=== PATIENT | female | born 1990 | race Caucasian/White ===

== ENCOUNTER → 2019-10-14 12:40 | Outpatient (CLI) | payer OTHER, SELFPAY ==
[2019-10-14 11:48] VITALS: BMI 33.3
[2019-10-14 13:13] LABS: Absolute Lymphocyte Count 2.52 X10^3/uL (0.83-4.51); Absolute Neutrophil Count 5.5 X10^3/uL (2.0-7.7); Basophil# 0.03 X10^3/uL; Basophil% 0.3 % (0-1); Eosinophils% 1.2 % (0-5); Hematocrit 37.8 % (37-47); Hemoglobin 13.8 g/dL (12.0-15.0); Lymphocyte # 2.52 X10^3/ul (4.0); Lymphocyte % 29.3 % (19-41); Mean Corp Hgb Conc 36.5 g/dL (32-36); Mean Corpuscular Hgb 31.8 pg (27.0-32.0); Mean Corpuscular Volume 87.1 fL (81-99); Mean Platelet Vol. 11.8 fl (6.2-12.0); Monocyte# 0.48 X10^3/uL; Monocyte% 5.6 % (0-10); NRBC Flagged by Analyzer 0 % (0-5); Neutrophil # 5.45 X10^3/uL (2.7-7.7); Neutrophil % 63.3 % (47-70); Platelet Count 196 K/mm3 (150-450); RBC Distribution Width CV 11.5 % (11.6-14.6); RBC Distribution Width SD 36.8 fl (35.1-43.9); Red Blood Count 4.34 M/mm3 (4.2-5.4); White Blood Count 8.6 K/mm3 (4.4-11.0)
[2019-10-14 13:48] LABS: ALB/GLOB Ratio 1.1 RATIO (0.9-2.4); AST(SGOT) 13 U/L (15-37); Alanine Aminotransfer ALT/SGPT 23 U/L (13-56); Albumin, Serum 3.6 g/dL (3.2-5.0); Alkaline Phosphatase 90 U/L (45-117); Anion Gap 11 (5-15); BUN 9 mg/dL (7-18); BUN/Creat Ratio 11.7 RATIO (10-20); Calcium,Total 8.5 mg/dL (8.5-10.1); Chloride 105 mmol/L (98-107); Creatinine, Serum 0.77 mg/dL (0.55-1.02); EST Glomerular Filtration Rate 93 mL/min (>60); Est Glom Filt Rate - Afr Amer 112 mL/min (>60); Globulin 3.4 g/dL (2.2-4.2); Glucose 259 mg/dL (74-106); Potassium 3.6 mmol/L (3.5-5.1); Sodium Level 136 mmol/L (136-145); Thyroid Stim Hormone (TSH) 4.36 uIU/mL (0.358-3.74)
[2019-10-14 14:30] LABS: HIV - WCH Non-Reactive (Nonreactive); Hepatitis B Surface Antigen Non-Reactive (Nonreactive); Rubella IgG > 500.0 IU/mL
[2019-10-14 14:46] LABS: Protein, Urine (Random) < 6.0 mg/dL (<11.9)
[2019-10-14 14:49] LABS: Microalbumin:Creatinine Ratio 7.8 mg/g CRE (<30 mg/g CRE)
[2019-10-14 16:32] LABS: Chlamydia Trachomatis by PCR Negative (Negative); Neisserai gonorrhoeae by PCR Negative (Negative); Probe Check PASS; Sample Adequacy Control PASS; Specimen Processing Control PASS
[2019-10-15 01:49] LABS: Rapid Plasmin Reagin (RPR) NONREACTIVE (NONREACTIVE)
[2019-10-19 20:15] LABS: HPV APTIMA, High Risk Positive (Negative)
== END ==
PROVIDERS: Family Medicine; Referring Provider Obstetrics & Gynecology; Visit Provider Obstetrics & Gynecology
DX: Z12.4 Encounter for screening for malignant neoplasm of cervix (principal); E11.65 Type 2 diabetes mellitus with hyperglycemia; E03.9 Hypothyroidism, unspecified; E07.9 Disorder of thyroid, unspecified; O99.210 Obesity complicating pregnancy, unspecified trimester; O24.919 Unspecified diabetes mellitus in pregnancy, unspecified trimester; Z83.2 Family history of diseases of the blood and blood-forming organs and certain disorders involving the immune mechanism
CPT/HCPCS: 36415; 80053; 82043; 82570; 84156; 84443; 85025; 85245; 86592; 86703; 86762; 86850; 86900; 86901; 87077; 87086; 87088; 87186; 87340; 87491; 87591; 87624; 88175; G0145

== ENCOUNTER 2019-10-30 01:55 | Emergency (ER) | payer OTHER, SELFPAY ==
[2019-10-14 11:48] VITALS: BMI 33.3
[2019-10-30 01:56] VITALS: BP 137/99; PULSE 80; RESP 16; TEMP 36.8; O2SAT 98; BMI 31.1
--- NOTE | 2019-10-30 02:38 | ED.VIS.GEN ---
History of Present Illness Chief Complaint: Vag Bleeding Informant: Patient Narrative: Patient is a G1, P0 at approximately 8 weeks by ultrasound. Ultrasound showed intrauterine with positive heart tones recently. She noticed yesterday she was having a tiny amount of spotting only when she wipes after urination. This continued today. She has no overt bleeding. Blood type is a positive. She is seeing Dr. Flip Berumen. She denies any abdominal pain. No fevers or chills. Denies any other urinary symptoms. Current severity mild. Past Medical History - Allergies and Home Meds Allergies/Adverse Reactions: Allergies No Known Allergies Allergy (Verified 10/14/19 11:36) Primary Care Physician: Kelby Sanabria MD [Primary Care Provider] - Prior records reviewed: Yes Past Medical History: None Surgical History: noncontributory Lives: With Family Smoking Status: Never smoker Alcohol: None Drugs: None Review of Systems General: Denies: Chills, Fever, Sweats Eyes: Denies: Visual changes - bilaterally, Diplopia ENT: Denies: Rhinorrhea, Sore throat Cardiovascular: Denies: Chest pain, Palpitations Respiratory: Denies: Dyspnea, Cough, Dyspnea on exertion Gastrointestinal: Denies: Abdominal pain, Nausea, Vomiting, Diarrhea, Melena, Hematochezia Genitourinary: Reports: - - Positive vaginal blood spot when she wipes. Denies: Dysuria, Hematuria, Frequency Musculoskeletal: Denies: Back pain, Extremity Pain Skin: Denies: Rash, Wounds Neurological: Denies: Headache, Weakness, Numbness Physical Exam Vital Signs/Narrative: Vital Signs Temp Pulse Resp BP Pulse Ox 10/30/19 01:56 98.2 F 80 16 137/99 H 98 General: Well nourished, Well developed, No Acute Distress Head: Normocephalic, Atraumatic Eyes: Perrl, EOMI ENT: Moist mucous membranes, No rhinorrhea Neck: Supple, Nontender Cardiovascular: Regular rate, Regular rhythm, No murmurs Respiratory: No distress, CTA bilaterally, Chest nontender Abdomen: Soft, Nontender, Nondistended, Normal bowel sounds Back: Nontender, Normal Inspection Extremities: Nontender, No edema Skin: Normal color, No rash Neurological: Alert, Oriented x3, Cranial nerves II-XII grossly intact, Normal Strength, Normal Sensation Psychological: Normal affect, Normal Mood Diagnostic/Tx/Re-eval - Medical Decision Making Urinalysis obtained. Patient's blood type is O+. I do not feel she needs a CBC as this is just spotting. Pelvic exam done.. Pelvic exam and she has membranes and mild bleeding coming out. Quantitative sent. At this time I discussed doing a ultrasound of the patient. However I feel she is having a miscarriage. Patient agrees she does not need ultrasound. She is to follow-up with her FLIGHT ATTENDANT/INFLIGHT SUPERVISOR. She will be discharged home. She does not need RhoGam as she is Rh+. She will follow-up as an outpatient. Given Tylenol for cramping ED Disposition - Plan for ED Patient: Disposition: Home or Assisted Living Diagnosis: Incomplete miscarriage Instructions: MISCARRIAGE (Incomplete) Additional Instructions: Please follow-up with your FLIGHT ATTENDANT/INFLIGHT SUPERVISOR in the next few days
[2019-10-30 03:09] LABS: Color, Urine Yellow (Yellow); Glucose, Dipstick Normal (Normal); Ketone-Dipstick 15 mg/dl (Negative); Leukocyte Esterase-Dipstick 100 /ul (Negative); Nitrite-Dipstick Negative (Negative); Occult Blood-Urine 250 /ul (Negative); Protein-Dipstick 15 mg/dl (Negative); Urine Bilirubin Dipstick Negative (Negative); Urine Clarity Sl. Cloudy (Clear); Urine Urobilinogen Normal (Normal)
[2019-10-30] MEDS: Acetaminophen 325 MG Tablet 650 MG PO (03:13)
[2019-10-30 03:14] LABS: Bacteria 1+ /hpf (None Seen); Squamous Epithelial Cells - UA 0-5 SEEN /hpf (5-10); White Blood Cells 5-10 SEEN /hpf (0-5)
[2019-10-30 03:15] LABS: Mucous, Urine 2+ /hpf (<or=2+); Red Blood Cells-Urine 10-25 SEEN /hpf (0-5)
--- NOTE | 2019-10-30 03:40 | POC_PTH ---
PATIENT: SKYLER NEW LOC: ED U#:[id number] AGE/SX: 29/F ROOM: RE10/30/[address]: Dr. Jenaro Blanton MD : 1990 BED: DIS: 10/30/2019 SPEC #: [id number] RECD: 10/30/19 09:19 STATUS: MIKE REJason #: [id number] ALEJANDRO: 10/30/19 03:[address]: Jenaro Blanton DEPT: SURGICAL PATHOLOGY RECD BY: James Valentine ENTERED: 10/30/19 09:20 SP TYPE: PROD CONC OTHR DR: Dr. Kelby Sanabria MD Tissues: Product of conception, NOS Procedures: Surgery Specimen Level IV HEADER OPERATION: Impending miscarriage PRE-OP DIAGNOSIS: Impending miscarriage TISSUE SUBMITTED: Products of conception MICROSCOPIC DIAGNOSIS Endometrium, curettage: Decidualized tissue. See comment. AM:castro 11/02/19 COMMENT Chorionic villi are not identified. Clinical correlation is suggested. MICROSCOPIC DESCRIPTION Slides are reviewed. GROSS DESCRIPTION Received is one container labeled with the patient's name and not further designated. The specimen consists of two elongated fragments of pink-jones soft tissue each measuring 1.5 cm in length and 0.7 cm in average in diameter. The specimen is serially sectioned and totally submitted in one cassette. / AM:castro 10/30/19 TC: 5 CPT: 61903 x2
[2019-10-30 03:44] LABS: Pathology Specimen OB SEE PATHOLOGY REPORT
[2019-10-30 04:00] VITALS: BP 112/79; PULSE 71; RESP 18; O2SAT 100
[2019-10-30 05:27] LABS: hCG Titer Quant., Serum 8666 mIU/mL (1-3)
== END 2019-10-30 04:01 | disposition home or self-care (01) ==
PROVIDERS: Emergency Provider Emergency Medicine; Family Provider Family Medicine; PCP Family Medicine
DX: O03.4 Incomplete spontaneous abortion without complication (principal)
CPT/HCPCS: 36415; 81001; 84702; 87086; 87088; 88305; 99282

== ENCOUNTER → 2020-03-03 13:29 | Outpatient (CLI) | payer OTHER, SELFPAY ==
[2020-01-20 11:02] VITALS: BMI 30.9
[2020-03-03 15:27] LABS: Hemoglobin A1c 9.1 % (4.2-6.3)
[2020-03-03 15:31] LABS: Thyroid Stim Hormone (TSH) 2.04 uIU/mL (0.358-3.74)
[2020-03-03 15:34] LABS: Microalbumin:Creatinine Ratio 10.2 mg/g CRE (<30 mg/g CRE)
== END ==
PROVIDERS: PCP Family Medicine; Referring Provider Family Medicine; Visit Provider Family Medicine
DX: E11.65 Type 2 diabetes mellitus with hyperglycemia (principal); E03.9 Hypothyroidism, unspecified
CPT/HCPCS: 36415; 82043; 82570; 83036; 84443

== ENCOUNTER → 2020-06-16 10:57 | Outpatient (CLI) | payer OTHER, SELFPAY ==
[2020-01-20 11:02] VITALS: BMI 30.9
[2020-06-16 12:15] LABS: Hematocrit 39.9 % (37-47); Hemoglobin 13.8 g/dL (12.0-15.0); Mean Corp Hgb Conc 34.6 g/dL (32-36); Mean Corpuscular Hgb 32.5 pg (27.0-32.0); Mean Corpuscular Volume 93.9 fL (81-99); Mean Platelet Vol. 12.8 fl (6.2-12.0); Platelet Count 218 K/mm3 (150-450); RBC Distribution Width CV 11.9 % (11.6-14.6); RBC Distribution Width SD 40.8 fl (35.1-43.9); Red Blood Count 4.25 M/mm3 (4.2-5.4)
[2020-06-16 12:55] LABS: Vitamin B12 351 pg/mL (211-911); Vitamin D,25 Hydroxy 27.4 ng/mL
[2020-06-16 13:00] LABS: Free T3 2.1 pg/mL (2.18-3.98); T4 Free Direct 1.12 ng/dL (0.76-1.46); Thyroid Stim Hormone (TSH) 2.21 uIU/mL (0.358-3.74)
== END ==
PROVIDERS: PCP Family Medicine; Referring Provider Family Medicine; Visit Provider Family Medicine
DX: E03.9 Hypothyroidism, unspecified (principal); R53.83 Other fatigue; E11.65 Type 2 diabetes mellitus with hyperglycemia
CPT/HCPCS: 36415; 82306; 82607; 83036; 84439; 84443; 84481; 85027

== ENCOUNTER → 2020-06-18 10:17 | Outpatient (CLI) | payer OTHER, SELFPAY ==
[2020-01-20 11:02] VITALS: BMI 30.9
--- NOTE | 2020-06-18 10:20 | US_ITS ---
STUDY: THYROID ULTRASOUND REASON FOR EXAM: Female, 30 years old. Palpated left thyroid nodule TECHNIQUE: Ultrasound evaluation of the thyroid was performed with real-time and static dick-scale imaging. COMPARISON: None. FINDINGS: RIGHT LOBE: The right lobe of the thyroid gland measures 5.0 x 1.3 x 1.6 cm. There is a mildly heterogeneous echotexture. There are no demonstrated solid, cystic or complex lesions. LEFT LOBE: The left lobe of the thyroid gland measures 4.1 x 1.4 x 1.0 cm. There is a mildly heterogeneous echotexture. There are no demonstrated solid, cystic or complex lesions. ISTHMUS: The isthmus measures 2 mm. The regional lymph nodes are normal. US/Thyroid IMPRESSION: 1. No solid or cystic thyroid nodules. Electronically Signed: Thai Marx MD (Brooks) at 14:43 EDT , Service support ,
== END ==
PROVIDERS: PCP Family Medicine; Referring Provider Family Medicine; Visit Provider Family Medicine
DX: E04.1 Nontoxic single thyroid nodule (principal)
CPT/HCPCS: 76536

== ENCOUNTER → 2020-09-21 13:08 | Outpatient (CLI) | payer OTHER, SELFPAY ==
[2020-07-21 14:22] VITALS: BMI 31.1
[2020-09-21 16:22] LABS: Free T3 2.9 pg/mL (2.18-3.98); T4 Free Direct 1.06 ng/dL (0.76-1.46); Thyroid Stim Hormone (TSH) 2.27 uIU/mL (0.358-3.74)
== END ==
PROVIDERS: PCP Family Medicine; Referring Provider Family Medicine; Visit Provider Family Medicine
DX: E03.9 Hypothyroidism, unspecified (principal)
CPT/HCPCS: 36415; 84439; 84443; 84481

== ENCOUNTER → 2020-09-23 14:05 | Outpatient (CLI) | payer OTHER, SELFPAY ==
[2020-07-21 14:22] VITALS: BMI 31.1
== END ==
PROVIDERS: PCP Family Medicine; Referring Provider Family Medicine; Visit Provider Family Medicine
DX: Z00.00 Encounter for general adult medical examination without abnormal findings (principal); Z83.2 Family history of diseases of the blood and blood-forming organs and certain disorders involving the immune mechanism
CPT/HCPCS: 36415; 81241

== ENCOUNTER → 2021-03-24 14:00 | Outpatient (CLI) | payer OTHER, SELFPAY ==
[2021-02-28 14:15] VITALS: BMI 31.1
[2021-03-24 17:43] LABS: Anion Gap 6 (5-15); BUN 9 mg/dL (7-18); BUN/Creat Ratio 12.6 RATIO (10-20); Calcium,Total 8.8 mg/dL (8.5-10.1); Chloride 106 mmol/L (98-107); Creatinine, Serum 0.71 mg/dL (0.55-1.02); EST Glomerular Filtration Rate 100 mL/min (>60); Est Glom Filt Rate - Afr Amer 121 mL/min (>60); Glucose 102 mg/dL (74-106); Sodium Level 138 mmol/L (136-145); Thyroid Stim Hormone (TSH) 1.99 uIU/mL (0.358-3.74)
== END ==
PROVIDERS: PCP Family Medicine; Referring Provider Family Medicine; Visit Provider Family Medicine
DX: E03.9 Hypothyroidism, unspecified (principal)
CPT/HCPCS: 36415; 80048; 84443

== ENCOUNTER 2021-12-11 12:21 | Outpatient (CLI) | payer OTHER, SELFPAY ==
[2021-12-11 15:22] LABS: Cholesterol 157 mg/dL (200); High Density Lipoprotein 35 mg/dL; Triglycerides 221 mg/dL; Very Low Density Lipoprotein 44 mg/dL (5-40)
== END 2021-12-11 23:59 | disposition home or self-care (01) ==
LOC: MTLAB 12:23
PROVIDERS: PCP Registered Nurse; Referring Provider Registered Nurse; Visit Provider Registered Nurse
DX: E11.65 Type 2 diabetes mellitus with hyperglycemia (principal)
CPT/HCPCS: 36415; 80061

== ENCOUNTER → 2022-06-22 | Outpatient (CLI) | payer OTHER, SELFPAY ==
[2022-06-22 13:05] LABS: Microalbumin,Random Urine 7.1 mg/L (NO RANGE EST.); Microalbumin:Creatinine Ratio 4.4 mg/g CRE (<30 mg/g CRE)
[2022-06-22 13:12] LABS: Anion Gap 8 (5-15); BUN 9 mg/dL (7-18); Chloride 103 mmol/L (98-107); Creatinine, Serum 0.69 mg/dL (0.55-1.02); EST Glomerular Filtration Rate 103 mL/min (>60); Est Glom Filt Rate - Afr Amer 125 mL/min (>60); Glucose 93 mg/dL (74-106); Potassium 3.6 mmol/L (3.5-5.1); Sodium Level 137 mmol/L (136-145)
== END | disposition home or self-care (01) ==
LOC: MTLAB 11:05
PROVIDERS: PCP Registered Nurse; Referring Provider Registered Nurse; Visit Provider Registered Nurse
DX: E11.65 Type 2 diabetes mellitus with hyperglycemia (principal)
CPT/HCPCS: 36415; 80048; 82043; 82570

== ENCOUNTER → 2022-10-17 | Outpatient (CLI) | payer OTHER, SELFPAY ==
[2022-10-17 09:53] LABS: Mucous, Urine 0 SEEN /hpf (<or=2+)
[2022-10-17 10:00] LABS: Glucose, Dipstick Normal (Normal); Ketone-Dipstick 5 mg/dl (Negative); Leukocyte Esterase-Dipstick 500 /ul (Negative); Nitrite-Dipstick Positive (Negative); Occult Blood-Urine 10 /ul (Negative); Protein-Dipstick 15 mg/dl (Negative); Specific Gravity, Urine 1.025 (1.002-1.030); Urine Clarity Sl. Cloudy (Clear); Urine Urobilinogen 4 mg/dl (Normal)
[2022-10-17 10:02] LABS: Color, Urine SEE COMMENT BELOW (Yellow); Urine Bilirubin Dipstick 3 mg/dL (Negative)
[2022-10-17 10:19] LABS: Squamous Epithelial Cells - UA 10-25 SEEN /hpf (5-10)
[2022-10-17 10:20] LABS: Bacteria 4+ /hpf (None Seen); Red Blood Cells-Urine 0-5 SEEN /hpf (0-5); White Blood Cells 5-10 SEEN /hpf (0-5)
== END | disposition home or self-care (01) ==
LOC: LABSPEC 09:48
PROVIDERS: PCP Registered Nurse; Visit Provider Physician Assistant
DX: R30.0 Dysuria (principal)
CPT/HCPCS: 81001; 87086; 87088

== ENCOUNTER → 2023-01-21 | Outpatient (CLI) | payer OTHER, SELFPAY ==
[2023-01-21 18:16] LABS: Cholesterol 192 mg/dL (200); High Density Lipoprotein 36 mg/dL; Thyroid Stim Hormone (TSH) 3.85 uIU/mL (0.358-3.74); Triglycerides 241 mg/dL; Very Low Density Lipoprotein 48 mg/dL (5-40)
== END | disposition home or self-care (01) ==
LOC: MFPLAB 16:37
PROVIDERS: PCP Registered Nurse; Visit Provider Family Medicine
DX: E11.65 Type 2 diabetes mellitus with hyperglycemia (principal)
CPT/HCPCS: 36415; 80061; 84443

== ENCOUNTER → 2023-03-11 | Outpatient (CLI) | payer OTHER, SELFPAY ==
[2023-03-14 07:08] LABS: Chlamydia By Nucleic Acid AMP Negative (Negative); Gonococcus By Nucleic Acid AMP Negative (Negative)
[2023-03-20 22:06] LABS: HPV APTIMA, High Risk Positive (Negative); HPV Genotype 16, Aptima Positive (Negative); HPV Genotype 18,45 Aptima Positive (Negative)
== END | disposition home or self-care (01) ==
LOC: LABSPEC 14:30
PROVIDERS: PCP Registered Nurse; Referring Provider Nurse Practitioner Women's Health; Visit Provider Nurse Practitioner Women's Health
DX: R87.612 Low grade squamous intraepithelial lesion on cytologic smear of cervix (LGSIL) (principal); N89.8 Other specified noninflammatory disorders of vagina
CPT/HCPCS: 87070; 87205; 87491; 87591; 87624; 88175; G0145

== ENCOUNTER → 2023-03-19 | Outpatient (CLI) | payer OTHER, SELFPAY ==
[2023-03-19 18:22] LABS: AST(SGOT) 22 U/L (15-37); Alanine Aminotransfer ALT/SGPT 38 U/L (13-56); Albumin, Serum 3.4 g/dL (3.2-5.0); Alkaline Phosphatase 84 U/L (45-117); Anion Gap 8 (5-15); BUN 10 mg/dL (7-18); BUN/Creat Ratio 14.2 RATIO (10-20); Calcium,Total 8.5 mg/dL (8.5-10.1); Chloride 107 mmol/L (98-107); EST Glomerular Filtration Rate 101 mL/min (>60); Est Glom Filt Rate - Afr Amer 122 mL/min (>60); Globulin 3.5 g/dL (2.2-4.2); Glucose 184 mg/dL (74-106); Potassium 4.4 mmol/L (3.5-5.1); Protein, Total 6.9 g/dL (6.4-8.2); Sodium Level 138 mmol/L (136-145); Thyroid Stim Hormone (TSH) 7.73 uIU/mL (0.358-3.74)
[2023-03-19 19:07] LABS: Microalbumin,Random Urine 16.9 mg/L (NO RANGE EST.)
== END | disposition home or self-care (01) ==
LOC: MFPLAB 15:51
PROVIDERS: PCP Family Medicine; Visit Provider Family Medicine
DX: E03.9 Hypothyroidism, unspecified (principal); E11.65 Type 2 diabetes mellitus with hyperglycemia
CPT/HCPCS: 36415; 80053; 82043; 84439; 84443; 84481

== ENCOUNTER → 2023-04-11 | Outpatient (CLI) | payer OTHER, SELFPAY ==
--- NOTE | 2023-04-11 12:04 | BI_ITS ---
MAMMOGRAPHY - BILATERAL SCREENING REASON FOR EXAM: Female, 33 years old. Routine annual screening examination. PERTINENT HISTORY: Non-contributory. TECHNIQUE: Digital bilateral breast annabelle (3D mammographic acquisition) in the CC and MLO projections. 2-D mediolateral oblique (MLO) and craniocaudad (CC) views of both breasts were obtained. CAD: Full Field Digital Mammography with Computer Added Detection was performed. COMPARISON: Comparison is made with prior study dated June 30, 2014. FINDINGS: Breast Composition: There are scattered areas of fibroglandular density. There are no dominant masses or suspicious calcifications. No other significant abnormalities are identified. There has been no significant change since the prior study. BI/SCRN MAMM (CAD)W/ANNABELLE BILAT IMPRESSION: Stable bilateral screening mammogram. Yearly follow-up mammogram recommended. (A) ASSESSMENT CATEGORY: BIRADS Category 1: Negative. A letter regarding these results will be sent to the patient by the facility within 30 days. Approximately 10% of breast cancers are not detected by mammography. A normal mammogram should not delay biopsy of a clinically suspicious abnormality. [id number] Electronically Signed: Tremayne Verduzco MD at 12:40 EDT ,
== END | disposition home or self-care (01) ==
LOC: OPBI 12:02
PROVIDERS: PCP Family Medicine; Referring Provider Nurse Practitioner Women's Health; Visit Provider Nurse Practitioner Women's Health
DX: Z12.31 Encounter for screening mammogram for malignant neoplasm of breast (principal)
CPT/HCPCS: 77063; 77067

== ENCOUNTER → 2023-04-25 | Outpatient (CLI) | payer OTHER, SELFPAY ==
--- NOTE | 2023-04-25 | ECC_PTH ---
PATIENT: SKYLER NEW LOC: [facility] U#:[id number] AGE/SX: 33/F ROOM: RE04/25/[address]: Dr. Skyler Palacios DO : 1990 BED: DIS: 04/25/2023 SPEC #: [id number] RECD: 04/25/23 15:05 STATUS: MIKE ALLREDJason #: [id number] ALEJANDRO: 04/25/23 00:[address]: Skyler Palacios DEPT: SURGICAL PATHOLOGY RECD BY: James Valentine ENTERED: 04/26/23 07:54 SP TYPE: ECC OTHR DR: Fany Reis DO Tissues: A - Endocervical B - Uterine cervix, NOS Procedures: Surgery Specimen Level IV HEADER OPERATION: Colposcopy PRE-OP DIAGNOSIS: HPV positive TISSUE SUBMITTED: A - Endocervical curettings, B - 3 o'clock MICROSCOPIC DIAGNOSIS A. 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 Fragments of benign endocervical tissue. See comment. B. Cervix at 3 o'clock, biopsy: Moderate squamous dysplasia, DINORA II (HSIL). See comment. AM:castro 04/29/2023 COMMENT A & B. Results from immunohistochemistry ([id number]) for surrogate HPV marker (p16) will be reported separately. MICROSCOPIC DESCRIPTION Slides are reviewed. GROSS DESCRIPTION A - Received in fixative is one container labeled with the patient's name and designated ECC. The specimen consists of light jones mucoid material aggregating to 1.0 x 1.0 x <0.1 cm. The specimen is totally submitted in one cassette. B - Received in fixative is one container labeled with the patient's name and designated 3 o'clock. The specimen consists of a single irregular fragment of jones tissue measuring 0.5 x 0.2 x 0.1 cm. The specimen is totally submitted in one cassette. / AM:castro 04/26/2023 TC:5 CPT: 95842 x2
--- NOTE | 2023-04-25 | IMM_PTH ---
PATIENT: SKYLER NEW LOC: [facility] U#:[id number] AGE/SX: 33/F ROOM: RE04/25/[address]: Dr. Skyler Palacios DO : 1990 BED: DIS: 04/25/2023 SPEC #: [id number] RECD: 04/29/23 13:34 STATUS: MIKE PHILIPPE #: [id number] ALEJANDRO: 04/25/23 00:[address]: Skyler Palacios DEPT: IMMUNOHISTOCHEMISTRY RECD BY: Sanjuana Husain ENTERED: 04/29/23 13:35 SP TYPE: IMMUNO OTHR DR: Fany Reis DO Tissues: A - Endocervical B - Uterine cervix, NOS Procedures: p16 (initial) KI-67 (add) PHYSICIAN & INSTITUTION [place] [id number] SPECIMEN INFORMATION: Tissue Source: A ? Endocervical curettings, B ? Cervix at 3 o?clock Clinical Info: HPV positive Specimen Number: [id number] A & B CPT code: 94903 x2, 96761 x2 METHODOLOGY: Deparaffinized sections of prefer/formalin-fixed tissue or PAP/DQ stained slides are incubated with monoclonal/polyclonal antibodies/oligonucleotide probes. Localization is made via biotin free immunoperoxidase method. Appropriate controls are performed and reacted as expected. Results on target cell population are indicated in the following table: RESULTS: ANTIBODY / CLONE RESULT Block A P16 (E6H4) positive, patchy to block-like Ki-67 (30-9) positive, moderate Block B P16 (E6H4) positive, block-like Ki-67 (30-9) positive, moderate These tests were developed and their performance characteristics determined by [facility]. They may not have been cleared or approved by the U.S. Food and Drug Administration. The FDA has determined that such clearance or approval is not necessary. The above immunohistochemical/dualISH markers are ordered and reviewed by the Pathologist. INTERPRETATION: A. Endocervix, curettings: Mild to moderate squamous dysplasia, DINORA I-II (HSIL). B. Cervix at 3 o?clock, biopsy: Moderate squamous dysplasia, DINORA II (HSIL). AM:castro 04/30/2023
== END | disposition home or self-care (01) ==
LOC: LABSPEC 15:11
PROVIDERS: PCP Family Medicine; Referring Provider Obstetrics & Gynecology; Visit Provider Obstetrics & Gynecology
DX: Z11.51 Encounter for screening for human papillomavirus (HPV) (principal)
CPT/HCPCS: 88305; 88341; 88342

== ENCOUNTER → 2023-06-25 | Outpatient (CLI) | payer OTHER, SELFPAY ==
[2023-06-25 18:51] LABS: T4 Free Direct 1.31 ng/dL (0.76-1.46); Thyroid Stim Hormone (TSH) 2.51 uIU/mL (0.358-3.74)
== END | disposition home or self-care (01) ==
LOC: MFPLAB 15:01
PROVIDERS: PCP Family Medicine; Visit Provider Family Medicine
DX: E03.9 Hypothyroidism, unspecified (principal)
CPT/HCPCS: 36415; 84439; 84443

== ENCOUNTER 2023-12-11 01:31 | Emergency (ER) | payer OTHER, SELFPAY ==
[2023-12-11 01:33] VITALS: BP 161/101; PULSE 76; RESP 16; TEMP 36.9; O2SAT 100; BMI 27.1
--- OUTSIDE RECORDS SUMMARY | 2023-12-11 02:10 | XMS RPT_ITS | CCD ---
Author Name Unknown Address [address] [place] [address] [address] [place] [address] Organization [facility] Care Team Providers Care Track Laminating Machine Tender Name Role Phone NEBLAKE GAITAN, MARYCARMEN Unavailable Unavail able NEYKYLERT GAITAN, MARYCARMEN Unavailable Unavail able NEYHART GAITAN, MARYCARMEN Unavailable Unavail able MAKIN, VINNI Unavailable Unavailable MAKIN, VINNI Unavailable Unavailable MAKIN, VINNI Unavailable Unavailable MAKIN, VINNI Unavailable Unavailable MAKIN, VINNI Unavailable Unavailable MAKIN, VINNI Unavailable Unavailable MAKIN, VINNI Unavailable Unavailable MAKIN, VINNI Unavailable Unavailable MAKIN, VINNI Unavailable Unavailable WILTON OROSCO, JACKIE Leija Attending Unavailable PHYSICIAN, NOT RECORDED Primary Care Unavaila ble Problems Active Problems Problem Classification Problem Date Documented Da te Episodic/Chronic Thyroid disorders (1 source) Hypothyroidism, unspecified; Translations: [Hypothyroidism, unspecified] Onset: 07-30-2017 Chronic Unclassified (1 source) Unknown / UNK(Unknown) Onset: 07-30-2017 Past or Other Problems Problem Classification Problem Date Documented Da te Episodic/Chronic Other female genital disorders (1 source) Personal history of other diseases of the female genital tract; Translations: [Personal history of other diseases of the female genital tract] Onset: 06-11-2017 Episodic Other nutritional; endocrine; and metabolic disorders (1 source) Personal history of other endocrine, nutritional and metabolic disease; Translations: [Personal history of other endocrine, nutritional and metabolic disease] Onset: 06-11-2017 Episodic Other skin disorders (1 source) Hirsutism; Translations: [Hirsutism] Onset: 06-11-2017 Episodic Results Test Name Value Interpretation Reference Range Facil ity Encounters Encounter Date Encounter Type Care Provider Facility Start: 09-22-2022 End: 09-22-2022 Emergency department patient visit JACKIE NÚÑEZ MD Facility:A Start: 05-26-2018 End: 05-27-2018 Patient encounter [facility] Start: 11-26-2017 End: 11-26-2017 Patient encounter [facility] H[facility] Start: 08-28-2017 End: 08-28-2017 Patient encounter [facility] H[facility] Start: 07-30-2017 End: 07-31-2017 Patient encounter ADDIS[facility] HAM[facility] Start: 06-14-2017 End: 06-14-2017 Patient encounter MARYCARMEN GAITAN [facility] Start: 06-11-2017 End: 06-13-2017 Patient encounter MARYCARMEN GAITAN [facility] Payers Date Payer Category Payer Unknown [id number] 1990 Unknown [id number] Summary Purpose Family History No Family History Records FoundNo Family History Records Found Advance Directives No Advanced Directives Records FoundNo Advanced Directives Records Found Additional Source Comments INFORMATION SOURCE (unrecogn ized section and content) DATE CREATED AUTHOR AUTHOR'S ORGANIZ ATION 09/29/2022 [facility] ([place]) FOR RECORDS PERTAINING TO PATIENTS WHO ARE OR HAVE BEEN ENROLLED IN A CHEMICAL DEPENDENCY/SUBSTANCEABUSE PROGRAM, SOME INFORMATION MAY BE OMITTED. This clinical summary was aggregated from multiple sources. Caution should be exercised in using it in the provision of clinical care. This summary normalizes information from multiple sources, and as a consequence, information in this document may materially change the coding, format and clinical context of patient data. In addition, data may be omitted in some cases. CLINICAL DECISIONS SHOULD BE BASED ON THE PRIMARY CLINICAL RECORDS. [facility]. provides no warranty or guarantee of the accuracy or completeness of information in this document.
[2023-12-11] MEDS: Dicyclomine 10 MG Capsule 20 MG PO (02:43)
[2023-12-11] MEDS: 0.9% Normal Saline (1000mL) 1,000 ML 999 ML IV (02:44)
[2023-12-11 02:51] LABS: Absolute Lymphocyte Count 1.96 X10^3/uL (0.83-4.51); Absolute Neutrophil Count 10.6 X10^3/uL (2.0-7.7); Basophil# 0.05 X10^3/uL; Basophil% 0.4 % (0-1); Eosinophils% 2.2 % (0-5); Hematocrit 39.6 % (37-47); Hemoglobin 13.9 g/dL (12.0-15.0); Lymphocyte # 1.96 X10^3/ul (0.83-4.51); Lymphocyte % 14.3 % (19-41); Mean Corp Hgb Conc 35.1 g/dL (32-36); Mean Corpuscular Hgb 31.7 pg (27.0-32.0); Mean Corpuscular Volume 90.4 fL (81-99); Mean Platelet Vol. 11.5 fl (6.2-12.0); Monocyte# 0.71 X10^3/uL; Monocyte% 5.2 % (0-10); NRBC Flagged by Analyzer 0 % (0-5); Neutrophil # 10.62 X10^3/uL (2.7-7.7); Neutrophil % 77.5 % (47-70); Platelet Count 208 K/mm3 (150-450); RBC Distribution Width CV 12.3 % (11.6-14.6); RBC Distribution Width SD 40.8 fl (35.1-43.9); Red Blood Count 4.38 M/mm3 (4.2-5.4); White Blood Count 13.7 K/mm3 (4.4-11.0)
[2023-12-11 03:11] LABS: Internal QC Validated? YES +Cl - CLEAR BKGD; Pregnancy, Serum, hCG Quali. NEGATIVE Negative
[2023-12-11 03:15] LABS: AST(SGOT) 16 U/L (15-37); Alanine Aminotransfer ALT/SGPT 16 U/L (13-56); Albumin, Serum 3.7 g/dL (3.2-5.0); Alkaline Phosphatase 84 U/L (45-117); Anion Gap 4 (5-15); BUN 10 mg/dL (7-18); BUN/Creat Ratio 12.2 RATIO (10-20); Bilirubin, Direct 0.14 mg/dL (0.00-0.30); Calcium,Total 8.6 mg/dL (8.5-10.1); Chloride 107 mmol/L (98-107); Creatinine, Serum 0.82 mg/dL (0.55-1.02); EST Glomerular Filtration Rate 84 mL/min (>60); Est Glom Filt Rate - Afr Amer 101 mL/min (>60); Estimated Creatinine Clearance 89.49 ml/min; Globulin 3.3 g/dL (2.2-4.2); Glucose 118 mg/dL (74-106); Lipase 39 U/L (13-75); Magnesium 1.7 mg/dL (1.6-2.6); Potassium 3.5 mmol/L (3.5-5.1); Sodium Level 135 mmol/L (136-145)
[2023-12-11] MEDS: Diphenoxylate/Atrop 1 Tablet PO (03:46)
[2023-12-11 04:04] VITALS: BP 144/95; PULSE 78; RESP 12; O2SAT 100
[2023-12-11 04:05] VITALS: BP 137/91; PULSE 75; RESP 12; O2SAT 100
--- NOTE | 2023-12-11 04:09 | EX.ED.DYSGE1 ---
HPI History of Present Illness Chief Complaint: Abd Pain Informant: patient Narrative Narrative: Patient is a 33-year-old female with past medical history of hypothyroidism as well as anxiety/depression. She states that over the last 2 days she has had intermittent bouts of midepigastric abdominal spasm/pain. She states that there is also been loose stool/diarrhea. She denies any recent antibiotic use or travel outside the country or exposure to livestock. She denies any history of intestinal disorders such as ulcerative colitis or Crohn's disease. She does state that she had issues with her intestines when her anxiety would flare but she has not had any anxiety symptoms recently. She denies any known sick contacts but based on the recurrent nature of her symptoms presents for evaluation [facility] Medical History (Updated 12/11/23 @ 04:[address] Buck Jaramillo, ) Anxiety Depression Diabetes mellitus affecting Miscarriage Thyroid disease Home Medications multivitamin no.47-iron fum 27 mg-folate no.1 1 mg-dha 300 mg capsule (PNV-DHA) 1 cap PO DAILY 10/14/19 [History Last Taken Unknown] levothyroxine 50 mcg tablet 50 mcg PO DAILY 10/30/19 [History Last Taken Unknown] liothyronine 5 mcg tablet 5 mcg PO DAILY 07/21/20 [History Last Taken Unknown] citalopram 20 mg tablet 20 mg PO DAILY 03/11/23 [History Last Taken Unknown] tirzepatide 5 mg/0.5 mL subcutaneous pen injector (Mounjaro) 5 mg subcut QWEEK 04/25/23 [History Last Taken 12/05/23] dicyclomine 20 mg tablet 20 mg PO 4X/DAY PRN PRN Abdominal pain/spasm #28 tabs 12/11/23 [Rx Last Taken Unknown] diphenoxylate-atropine 2.5 mg-0.025 mg tablet (Lomotil) 1 tab PO 4X/DAY PRN PRN diarrhea 5 days #20 tabs 12/11/23 [Rx Last Taken Unknown] ondansetron 4 mg disintegrating tablet 4 mg PO TID PRN nausea and vomiting #21 tabs 12/11/23 [Rx Last Taken Unknown] Allergy/AdvReac Type Severity Reaction Status Date / Time No Known Allergies Allergy Verified 04/25/23 13:48 Family History Mother Diabetes Grandmother Heart disease Diabetes Sister Factor V deficiency Aunt Factor V deficiency Father Hypertension Surgical History No significant past surgical history Social History adopted: No household members: spouse housing: house current occupational status: employed current occupation: [employer] pets and animals: Yes history of recent travel: No sexually active: Yes Smoking Status: Never smoker second hand exposure: No alcohol intake: current alcohol intake frequency: a few times a month details: not while substance use type: does not use what type of physical activity do you participate in: aerobics and weight training frequency: 1-2 times per week seatbelt use: always do you feel safe at home: Yes additional social history: - [employer] 2[employer] Shift ROS ROS ED Constitutional Constitutional ED: Denies chills or fever(s) ENT ENT ED: Denies sore throat Cardiovascular Cardiovascular: Denies chest pain Respiratory/Chest Respiratory/Chest: Denies cough or dyspnea Gastrointestinal Gastrointestinal: Reports abdominal pain, diarrhea and nausea; Denies vomiting Genitourinary Genitourinary ED: Denies dysuria Musculoskeletal Musculoskeletal: Denies back pain or myalgias Integumentary Denies rash Neurologic Neurologic: Denies headache(s) Psychiatric Psychiatric: Denies anxiety Hematologic/Lymphatic Hematologic/Lymphatic: Denies easy bleeding or easy bruising EXAM Physical Exam Const Vital Signs: 12/11/23 01:33 12/11/23 04:04 12/11/23 04:05 Temperature 98.4 F Temperature Source Oral Pulse Rate 76 78 75 Respiratory Rate 16 12 12 Blood Pressure 161/101 H 144/95 H 137/91 H Blood Pressure Mean 121 111 106 Pulse Ox 100 100 100 Oxygen Delivery Method Room Air Room Air 12/11/23 04:27 Temperature Temperature Source Pulse Rate 75 Respiratory Rate 16 Blood Pressure 140/95 H Blood Pressure Mean 110 Pulse Ox 100 Oxygen Delivery Method Positive well nourished and well developed General Appearance ED: well developed; Negative for pallor HEENT HEENT Narrative: Normocephalic atraumatic Eyes PERRL and EOMs intact bilaterally General Eye ED: Negative for scleral icterus Neck supple Resp normal respiratory effort and clear to auscultation bilaterally Cardio regular rate and regular rhythm Rate: other Other Details: Heart is regular rate and rhythm without murmurs rubs or gallops Radial and carotid pulses are equal and symmetric GI non-tender and non-distended GI Narrative: Abdomen is soft nontender and nondistended with hyperactive bowel sounds. No voluntary guarding or rigidity or pulsatile mass noted. Auscultation: hyperactive bowel sounds Palpation: soft Extremity normal to inspection Neuro oriented x3, CN's II-XII intact bilaterally and no sensory deficits noted Sensorium / Orientation: alert Motor Exam: strength 5/5 throughout Psych mental status grossly normal Skin no rashes or lesions noted General Skin Exam: Negative for jaundice or pallor MDM MDM MDM Narrative Medical decision making narrative: Patient presented to the ER hypertensive otherwise with stable vitals. Differential diagnosis for intermittent abdominal pain/spasm with loose stool/diarrhea is most consistent with viral stomach infection such as Arma or rotavirus. Patient does not have any recent travel outside the country or antibiotic use to suggest C. difficile or E. coli infection. Also as there is no pain with palpation of the abdomen concern for biliary colic versus acute cholecystitis versus pancreatitis is low. Therefore at this time elected to only perform basic laboratory studies and no imaging. Labs revealed leukocytosis of 13.7 but otherwise no clinically significant findings. Patient was given IV fluids as well as Zofran Bentyl and Lomotil. While in the ER there is no further bouts of diarrhea and on reevaluation abdomen remains soft and nonsurgical. As she does not have a history of hypertension and was elevated I did have nursing take blood pressures in bilateral arms and they are roughly equal going against dissection. At this time with intermittent spasm and loose stool/diarrhea I do feel this is most likely viral in nature. As the patient does not have signs of acute kidney injury or severe electrolyte derangement and she is not developing a fever or having pain with palpation I do not feel there is a need for CT scan and she can be given symptomatic medications and discharged home History & Record Review Discussion w/independent historian: Patient Lab Data Attestation: I reviewed the patient's lab results. Labs: Laboratory Results - last 24 hr 12/11/23 02:45 WBC 13.7 H RBC 4.38 Hgb 13.9 Hct 39.6 MCV 90.4 MCH 31.7 MCHC 35.1 RDW Std Deviation 40.8 RDW Coeff of Oscar 12.3 Plt Count 208 MPV 11.5 Immature Gran % (Auto) 0.400 Neut % (Auto) 77.5 H Lymph % (Auto) 14.3 L [place] % (Auto) 5.2 Eos % (Auto) 2.2 Baso % (Auto) 0.4 Absolute Neuts (auto) 10.6 H Absolute Lymphs (auto) 1.96 Nucleated RBC % 0 Sodium 135 L Potassium 3.5 Chloride 107 Carbon Dioxide 24.0 Anion Gap 4 L BUN 10 Creatinine 0.82 Estim Creat Clear Calc 89.49 Est GFR (MDRD) Af Amer 101 Est GFR (MDRD) Non-Af 84 BUN/Creatinine Ratio 12.2 Glucose 118 H Calcium 8.6 Magnesium 1.7 Total Bilirubin 0.40 Direct Bilirubin 0.14 AST 16 ALT 16 Alkaline Phosphatase 84 Total Protein 7.0 Albumin 3.7 Globulin 3.3 Lipase 39 Serum , Qual NEGATIVE Discharge Plan Triage Chief Complaint: Abd Pain ED Provider: Buck Jaramillo Dx/Rx/DC Orders Clinical Impression: Nonspecific abdominal pain, Diarrhea Instructions: Abdominal Pain, ED Gastroenteritis, Viral (Adult) Prescriptions: New ondansetron 4 mg tablet,disintegrating 4 mg PO TID PRN (Reason: nausea and vomiting) Qty: 21 1RF dicyclomine 20 mg tablet 20 mg PO 4X/DAY PRN PRN (Reason: Abdominal pain/spasm) Qty: 28 1RF diphenoxylate-atropine [Lomotil] 2.5-0.025 mg tablet 1 tab PO 4X/DAY PRN PRN (Reason: diarrhea) 5 Days Qty: 20 0RF No Action PNV-DHA 27 mg iron-1 mg -300 mg capsule 1 cap PO DAILY liothyronine 5 mcg tablet 5 mcg PO DAILY citalopram 20 mg tablet 20 mg PO DAILY Mounjaro 5 mg/0.5 mL pen injector 5 mg subcut QWEEK levothyroxine 50 MCG tablet 50 mcg PO DAILY Primary Care Provider: Fany Reis Referrals: Fany Reis, [Primary Care Provider] - Activity Restrictions/Additional Instructions: Your history and exam indicate this is most likely intestinal inflammation from a stomach virus. The symptoms will last on average 3 to 7 days. Take the medication as prescribed to help control symptoms. If you have any further concerns or worsening symptoms despite taking medication please return for repeat evaluation. Disposition Disposition: Home, Self Care Discharge Date/Time: 12/11/23 04:56
[2023-12-11 04:27] VITALS: BP 140/95; PULSE 75; RESP 16; O2SAT 100
== END 2023-12-11 04:56 | disposition home or self-care (01) ==
PROVIDERS: Emergency Provider Emergency Medicine; PCP Family Medicine; Visit Provider Emergency Medicine
DX: R19.7 Diarrhea, unspecified (principal); R10.13 Epigastric pain; F41.9 Anxiety disorder, unspecified; E03.9 Hypothyroidism, unspecified; Z11.52 Encounter for screening for COVID-19; F32.A Depression, unspecified; Z79.890 Hormone replacement therapy; Z79.899 Other long term (current) drug therapy
CPT/HCPCS: 80048; 80076; 83690; 83735; 84703; 85025; 87631; 96360; 96361; 99282; J7030; A4216

== ENCOUNTER → 2024-03-12 | Outpatient (CLI) | payer OTHER, SELFPAY ==
[2024-03-18 02:07] LABS: HPV APTIMA, High Risk Positive (Negative); HPV Genotype 16, Aptima Positive (Negative); HPV Genotype 18,45 Aptima Negative (Negative)
== END | disposition home or self-care (01) ==
PROVIDERS: PCP Family Medicine; Referring Provider Nurse Practitioner Women's Health; Visit Provider Nurse Practitioner Women's Health
DX: Z12.4 Encounter for screening for malignant neoplasm of cervix (principal)
CPT/HCPCS: 87624; 88175; G0145

== ENCOUNTER → 2024-06-30 | Outpatient (CLI) | payer OTHER, SELFPAY ==
[2024-06-30 13:02] LABS: Absolute Lymphocyte Count 2.09 X10^3/uL (0.83-4.51); Absolute Neutrophil Count 3.6 X10^3/uL (2.0-7.7); Basophil# 0.07 X10^3/uL; Basophil% 1.1 % (0-1); Eosinophil# 0.19 X10^3/uL; Hematocrit 40.4 % (37-47); Hemoglobin 13.5 g/dL (12.0-15.0); Lymphocyte # 2.09 X10^3/ul (0.83-4.51); Lymphocyte % 32.8 % (19-41); Mean Corp Hgb Conc 33.4 g/dL (32-36); Mean Corpuscular Hgb 31.4 pg (27.0-32.0); Mean Platelet Vol. 12.4 fl (6.2-12.0); Monocyte# 0.44 X10^3/uL; Monocyte% 6.9 % (0-10); NRBC Flagged by Analyzer 0 % (0-5); Neutrophil # 3.56 X10^3/uL (2.7-7.7); Neutrophil % 55.9 % (47-70); Platelet Count 256 K/mm3 (150-450); RBC Distribution Width CV 12.7 % (11.6-14.6); White Blood Count 6.4 K/mm3 (4.4-11.0)
[2024-06-30 13:35] LABS: Vitamin D,25 Hydroxy 22.8 ng/mL
[2024-06-30 14:18] LABS: AST(SGOT) 14 U/L (15-37); Alanine Aminotransfer ALT/SGPT 16 U/L (13-56); Albumin, Serum 3.5 g/dL (3.2-5.0); Alkaline Phosphatase 71 U/L (45-117); Anion Gap 7 (5-15); BUN 11 mg/dL (7-18); BUN/Creat Ratio 14.3 RATIO (10-20); Chloride 108 mmol/L (98-107); Cholesterol 142 mg/dL (200); Creatinine, Serum 0.77 mg/dL (0.55-1.02); EST Glomerular Filtration Rate 90 mL/min (>60); Est Glom Filt Rate - Afr Amer 109 mL/min (>60); Globulin 3.6 g/dL (2.2-4.2); Glucose 84 mg/dL (74-106); High Density Lipoprotein 51 mg/dL; Potassium 4.5 mmol/L (3.5-5.1); Protein, Total 7.1 g/dL (6.4-8.2); Sodium Level 141 mmol/L (136-145); Triglycerides 82 mg/dL; Very Low Density Lipoprotein 16 mg/dL (5-40)
== END | disposition home or self-care (01) ==
PROVIDERS: PCP Family Medicine; Referring Provider Family Medicine; Visit Provider Family Medicine
DX: E11.9 Type 2 diabetes mellitus without complications (principal); L68.0 Hirsutism; E03.9 Hypothyroidism, unspecified; E66.9 Obesity, unspecified; Z13.21 Encounter for screening for nutritional disorder
CPT/HCPCS: 36415; 80053; 80061; 82306; 82627; 84402; 84443; 85025; 82626